=== PATIENT | female | born 1945 | race Caucasian/White ===

== ENCOUNTER 2018-01-04 07:13 | Day surgery (SDC) | payer MEDICARE, OTHER ==
[~2018-01-04] VITALS: Ht 160 cm; Wt 99.0 kg
[~2018-01-04 07:13] MED LIST: AMLO5; CYCL10; GABA300; HYDR1TAB94; MELO7.5; METO50ER; Nortriptyline H50 MG
[2018-01-04] MEDS ORDERED: LISI20 PO (07:55)
== END 2018-01-04 09:56 | disposition home or self-care (01) ==
LOC: ORSCSDS 07:13
PROVIDERS: Internal Medicine Gastroenterology
PROC: 0DBM8ZX Excision of Descending Colon, Via Natural or Artificial Opening Endoscopic, Diagnostic (ICD-10-PCS; principal; 2018-01-04 09:00)
PROC: 0DBK8ZX Excision of Ascending Colon, Via Natural or Artificial Opening Endoscopic, Diagnostic (ICD-10-PCS; principal; 2018-01-04 09:00)
DX: Z12.11 Encounter for screening for malignant neoplasm of colon (principal); Z86.010 Personal history of colon polyps; D12.2 Benign neoplasm of ascending colon; D12.4 Benign neoplasm of descending colon; K63.5 Polyp of colon; K57.30 Diverticulosis of large intestine without perforation or abscess without bleeding; K64.8 Other hemorrhoids; I10 Essential (primary) hypertension; K21.9 Gastro-esophageal reflux disease without esophagitis; M79.7 Fibromyalgia; Z79.899 Other long term (current) drug therapy
CPT/HCPCS: 88305; J7120

== ENCOUNTER → 2018-09-26 | Outpatient (CLI) | payer MEDICARE, OTHER ==
[~2018-09-26] MED LIST changes: +LISI20 PO
== END ==
LOC: LAB EV 12:07 → LAB SHORT 12:07
DX: N39.0 Urinary tract infection, site not specified (principal)
CPT/HCPCS: 87086

== ENCOUNTER → 2018-11-28 | Outpatient (CLI) | payer MEDICARE, OTHER | END | disposition home or self-care (01) | LOC: PLD 08:06 → LAB SHORT 08:06 | DX: C44.612 Basal cell carcinoma of skin of right upper limb, including shoulder (principal) | CPT/HCPCS: 88305 ==

== ENCOUNTER → 2019-03-29 | Outpatient (CLI) | payer MEDICARE, OTHER | END | disposition home or self-care (01) | LOC: LAB SHORT 11:30 → LAB EV 11:30 | DX: Z51.81 Encounter for therapeutic drug level monitoring (principal); Z79.899 Other long term (current) drug therapy | CPT/HCPCS: G0480 ==

== ENCOUNTER → 2019-06-29 | Outpatient (CLI) | payer MEDICARE, OTHER | END | disposition home or self-care (01) | LOC: LAB SHORT 13:20 → LAB EV 13:20 | DX: Z51.81 Encounter for therapeutic drug level monitoring (principal); G89.4 Chronic pain syndrome; Z79.899 Other long term (current) drug therapy | CPT/HCPCS: G0480 ==

== ENCOUNTER 2019-08-23 14:10 | Emergency (ER) | payer MEDICARE, OTHER ==
[~2019-08-23] VITALS: Ht 160 cm; Wt 99.8 kg
[2019-08-23] MEDS ORDERED: Norco 5-325 Ta1 EACH PO (15:56)
== END 2019-08-23 16:03 | disposition home or self-care (01) ==
LOC: ER 14:10
DX: S92.404A Nondisplaced unspecified fracture of right great toe, initial encounter for closed fracture (principal); Z88.0 Allergy status to penicillin; Z88.1 Allergy status to other antibiotic agents; Z88.8 Allergy status to other drugs, medicaments and biological substances; W23.0XXA Caught, crushed, jammed, or pinched between moving objects, initial encounter
CPT/HCPCS: 73660; 99283-25

== ENCOUNTER → 2020-01-29 | Outpatient (CLI) | payer MEDICARE, OTHER ==
[~2020-01-29] MED LIST changes: +Norco 5-325 Ta1 EACH PO
== END | disposition home or self-care (01) ==
LOC: LAB SHORT 11:00 → LAB 11:00
DX: G89.29 Other chronic pain (principal); Z79.899 Other long term (current) drug therapy
CPT/HCPCS: G0480

== ENCOUNTER → 2020-05-07 | Outpatient (CLI) | payer MEDICARE, OTHER | END | disposition home or self-care (01) | LOC: LAB SHORT 11:52 → PLD 11:52 | DX: D48.5 Neoplasm of uncertain behavior of skin (principal) | CPT/HCPCS: 88305 ==

== ENCOUNTER → 2020-11-10 | Outpatient (CLI) | payer MEDICARE, OTHER | LOC: LAB SHORT 14:56 → LAB 14:56 | DX: D48.5 Neoplasm of uncertain behavior of skin (principal); Z88.0 Allergy status to penicillin; Z88.1 Allergy status to other antibiotic agents | CPT/HCPCS: 88305 ==

== ENCOUNTER → 2022-11-16 | Outpatient (CLI) | payer MEDICARE | END | disposition home or self-care (01) | LOC: LAB SHORT 14:47 → PLD 14:47 | DX: C44.01 Basal cell carcinoma of skin of lip (principal) | CPT/HCPCS: 88305 ==

== ENCOUNTER 2023-05-11 06:43 | Day surgery (SDC) | payer MEDICARE, OTHER ==
[~2023-05-11] VITALS: Ht 160 cm; Wt 98.6 kg
[~2023-05-11 06:43] MED LIST changes: -AMLO5; +AMLO5 PO; -GABA300; +GABA300 PO; -MELO7.5; +MELO7.5 PO; -METO50ER; +METO50ER PO; -Nortriptyline H50 MG; +Nortriptyline H50 MG PO; +ZESTRIL40 M1 PO
[2023-05-11] MEDS ORDERED: HYDROCODONE-AC1 EA19 PO (07:13)
[2023-05-11] MEDS ORDERED: FAMO20 PO (07:13)
--- NOTE | 2023-05-11 07:22 | NUR ---
05/11/23 0722 Lucretia Dominique 1 DROP OF TETRACAINE ADMINISTERED TO THE L EYE AT 0717 FOLLOWED BY PLEDGET PLACEMENT AT 0720 BY [email or web address]
--- NOTE | 2023-05-11 08:27 | NUR ---
05/11/23 0827 CEDRICK RODRIGUEZ IV REMOVED. WNL. CANNULA INTACT. RODRIGUEZ WELL
[2023-05-11 08:28] VITALS: BP 150/80
== END 2023-05-11 08:35 | disposition home or self-care (01) ==
LOC: ORSCSDS 06:43
PROVIDERS: Student in an Organized Health Care Education/Training Program
PROC: 08RK3JZ Replacement of Left Lens with Synthetic Substitute, Percutaneous Approach (ICD-10-PCS; principal; 2023-05-11 08:00)
DX: H25.12 Age-related nuclear cataract, left eye (principal); K21.9 Gastro-esophageal reflux disease without esophagitis; I10 Essential (primary) hypertension; E66.9 Obesity, unspecified; Z68.35 Body mass index [BMI] 35.0-35.9, adult; Z79.899 Other long term (current) drug therapy
CPT/HCPCS: J2250; J3010; J7040; V2632

== ENCOUNTER 2023-05-14 17:08 | Observation (INO) | payer MEDICARE, OTHER ==
[~2023-05-14] VITALS: Ht 160 cm; Wt 97.5 kg
[~2023-05-14 17:08] MED LIST changes: +FAMO20 PO; +HYDROCODONE-AC1 EA19 PO
[2023-05-14 17:46] LABS: BASOPHILS ABSOLUTE AUTO 0.06 K/mm3 (0.00-0.23); BASOPHILS PERCENT AUTO 1 % (0-2); EOSINOPHILS PERCENT AUTO 0 % (0-6); IMMATURE GRAN ABSOLUTE AUTO 0.06 K/mm3 (0.00-0.10); IMMATURE GRAN PERCENT AUTO 1 % (0-1); LYMPHOCYTES ABSOLUTE AUTO 0.39 K/mm3 (0.84-5.20); LYMPHOCYTES PERCENT AUTO 4 % (21-46); MONOCYTES ABSOLUTE AUTO 1.12 K/mm3 (0.16-1.47); MONOCYTES PERCENT AUTO 11 % (4-13); Mean Corpuscular HGB 26.4 pg (26.0-34.0); Mean Corpuscular HGB Conc 32.5 g/dL (31.5-36.5); Mean Corpuscular Volume 81 fL (80-100); Mean Platelet Volume 9.8 fL (9.1-12.4); NEUTROPHILS ABSOLUTE AUTO 8.61 K/mm3 (1.96-9.15); NEUTROPHILS PERCENT AUTO 84 % (41-73); Platelet Count 276 K/mm3 (150-400); RDW Coefficient Variation 14.7 % (11.7-14.2); RDW Standard Deviation 43.5 fL (35.1-46.3); Red Blood Cell Count 4.93 M/mm3 (3.80-5.20); White Blood Cell Count 10.24 K/mm3 (4.00-11.30)
[2023-05-14 18:00] LABS: Source, Urine Clean Catch
[2023-05-14 18:03] LABS: Bilirubin, Urine Neg (Neg); Blood, Urine 2+ (Neg); Glucose Qualitative, Urine Neg (Neg); Ketones, Urine 2+ (Neg); Leukocyte Esterase, Urine 2+ (Neg); Nitrite, Urine Neg (Neg); Protein, Urine 1+ (Neg); Specific Gravity, Urine 1.015 (1.003-1.022); Urobilinogen, Urine NORM (Normal); pH, Urine 6.5 (5.0-8.0)
[2023-05-14 18:05] LABS: Bilirubin, Total 1.4 mg/dL (0.1-1.0); Bun/Creatinine Ratio 12.9 (12.0-20.0); Calcium, Blood 9.9 mg/dL (8.5-10.1); Creatinine, Blood 0.78 mg/dL (0.40-1.00); Globulin, Blood 3.9 g/dL (2.2-4.0); Potassium, Blood 3.5 mmol/L (3.5-5.5); Total Protein, Blood 7.9 g/dL (6.4-8.2)
[2023-05-14 18:14] LABS: Influenza A, PCR NEGATIVE (NEGATIVE); Influenza B, PCR NEGATIVE (NEGATIVE); Resp Syncytial Virus, PCR NEGATIVE (NEGATIVE)
[2023-05-14 18:21] LABS: SARS-Cov-2 (COVID-19) PCR, MMC POSITIVE (NEGATIVE)
[2023-05-14 18:30] LABS: Color, Urine Pale Yellow (P-Yellow)
[2023-05-14 18:31] LABS: Appearance, Urine Hazy (Clear); Mucus Light (0-Heavy); Squamous Epithelial Cells Mod /hpf (Few); Transitional Epithelial Cells Few /hpf (0-Rare)
[2023-05-14 18:32] LABS: Bacteria Many /hpf
[2023-05-14 23:49] VITALS: BP 166/104
--- NOTE | 2023-05-15 04:39 | NUR ---
SHIFT SUMMARY PATIENT IS ALERT AND ORIENTED. PATIENT HAS HAD NO ACUTE EVENTS THIS SHIFT. VITAL SIGNS REVIEWED. PATIENT IS A RECENT ADMIT FOR COVID SYMPTOMS. PATIENT HAS COMPLAINED OF CHRONIC PAIN. PATIENT IS ON 2L NC, WHICH ROOM AIR IS BASELINE FOR PATIENT. PATIENT HAS NOT COMPLAINED OF SOB, NAUSEA OR VOMITTING THIS SHIFT. PATIENT HAS BEEN RESTING COMFORTABLY SINCE GETTING SETTLED INTO MEDICAL FLOOR ROOM. BED IN LOCKED AND LOWEST POSITION. CALL LIGHT IN PLACE. WILL MONITOR UNTIL SHIFT CHANGE.
[2023-05-15 05:01] VITALS: BP 147/75
[2023-05-15 05:39] LABS: BASOPHILS ABSOLUTE AUTO 0.05 K/mm3 (0.00-0.23); BASOPHILS PERCENT AUTO 1 % (0-2); EOSINOPHILS ABSOLUTE AUTO 0.14 K/mm3 (0.00-0.68); EOSINOPHILS PERCENT AUTO 2 % (0-6); Hematocrit 38.7 % (33.0-51.0); Hemoglobin 12.4 g/dL (11.5-16.0); IMMATURE GRAN ABSOLUTE AUTO 0.03 K/mm3 (0.00-0.10); IMMATURE GRAN PERCENT AUTO 0 % (0-1); LYMPHOCYTES ABSOLUTE AUTO 0.85 K/mm3 (0.84-5.20); LYMPHOCYTES PERCENT AUTO 12 % (21-46); MONOCYTES ABSOLUTE AUTO 1.45 K/mm3 (0.16-1.47); MONOCYTES PERCENT AUTO 20 % (4-13); Mean Corpuscular HGB 26.7 pg (26.0-34.0); Mean Corpuscular Volume 83 fL (80-100); Mean Platelet Volume 10.4 fL (9.1-12.4); NEUTROPHILS ABSOLUTE AUTO 4.65 K/mm3 (1.96-9.15); NEUTROPHILS PERCENT AUTO 65 % (41-73); Platelet Count 262 K/mm3 (150-400); RDW Standard Deviation 44.6 fL (35.1-46.3); Red Blood Cell Count 4.65 M/mm3 (3.80-5.20); White Blood Cell Count 7.17 K/mm3 (4.00-11.30)
[2023-05-15 06:10] LABS: Bun/Creatinine Ratio 12.4 (12.0-20.0); Calcium, Blood 9.1 mg/dL (8.5-10.1); Creatinine, Blood 0.73 mg/dL (0.40-1.00); Potassium, Blood 3.5 mmol/L (3.5-5.5)
[2023-05-15 08:04] VITALS: BP 151/84
[2023-05-15] MEDS ORDERED: Vitamin D1000 UNI1 PO (15:15)
--- NOTE | 2023-05-15 16:14 | NUR ---
DISCHARGE SUMMARY PT [email or web address]. PLEASANT AND COOPERATIVE WITH CARE. PT WEANED OFF O2 NC TODAY WITHOUT DIFFICULTY. HOSPICE MUSIC THERAPIST CALLED TO REPORT A 10 BEAT RUN OF SVT THIS AM. PT DENIED CARDIAC SYMPTOMS. PROVIDER NOTIFIED. PT REPORTS FEELING MUCH BETTER TODAY AND READY TO GET BACK HOME. PT WAS SAFELY DISCHARGED AFTER DISCUSSING DC INSTRUCTIONS INCLUDING DC MED LIST, OTC MEDS/VITAMINS RECOMMENDED, FOLLOW UP APPOINTMENT INFO WITH PCP AND PATIENT EDUCATION ON COVID 19/INFECTION PREVENTION. PT VERBALIZED UNDERSTANDING AND DENIED ANY FURTHER QUESTIONS AT TIME OF DC. PT ESCORTED OUT VIA WC WITH CARDIOLOGY TECHNOLOGIST.
== END 2023-05-15 16:12 | disposition home or self-care (01) ==
LOC: ER 17:08 → MEDS 17:09
PROVIDERS: Family Medicine; Student in an Organized Health Care Education/Training Program; ADMIT Internal Medicine
DX: U07.1 COVID-19 (principal); I10 Essential (primary) hypertension; J96.01 Acute respiratory failure with hypoxia; K21.9 Gastro-esophageal reflux disease without esophagitis; G89.4 Chronic pain syndrome; Z88.0 Allergy status to penicillin
CPT/HCPCS: 0241U; 36415; 71046; 80048; 80053; 81001; 83690; 83735; 84484; 85025; 87086; 93005; 93010; 94762; 96361; 96372; 96374; 96375; 99285-25; A9270; G0378; J1650; J1885; J2405; J7030

== ENCOUNTER 2023-06-14 06:28 | Day surgery (SDC) | payer MEDICARE, OTHER ==
[~2023-06-14] VITALS: Ht 160 cm; Wt 97.1 kg
[~2023-06-14 06:28] MED LIST changes: +Vitamin D1000 UNI1 PO
--- NOTE | 2023-06-14 07:13 | NUR ---
06/14/23 0713 Lucretia Dominique 1 DROP OF TETRACAINE ADMINISTERED TO THE R EYE AT 0712, PLEDGET PLACED IN R EYE AT 0713 BY [email or web address]
--- NOTE | 2023-06-14 08:44 | NUR ---
06/14/23 0844 CEDRICK RODRIGUEZ IV REMOVED W/D. RODRIGUEZ WELL. CANNULA INTACT, WNL
[2023-06-14 08:45] VITALS: BP 179/90
== END 2023-06-14 08:35 | disposition home or self-care (01) ==
LOC: ORSCSDS 06:28
PROVIDERS: Student in an Organized Health Care Education/Training Program
PROC: 08RJ3JZ Replacement of Right Lens with Synthetic Substitute, Percutaneous Approach (ICD-10-PCS; principal; 2023-06-14 08:00)
DX: H25.11 Age-related nuclear cataract, right eye (principal); Z96.1 Presence of intraocular lens; Z86.16 Personal history of COVID-19; I10 Essential (primary) hypertension; K21.9 Gastro-esophageal reflux disease without esophagitis; E66.9 Obesity, unspecified; Z68.37 Body mass index [BMI] 37.0-37.9, adult; Z79.899 Other long term (current) drug therapy
CPT/HCPCS: J2001; J2250; J3010; J7040; V2632